=== PATIENT | female | born 1995 | race African-American/Black ===

== ENCOUNTER 2017-08-22 17:08 | Emergency (ER) | payer MEDICAID ==
[~2017-08-22] VITALS: Ht 162.6 cm; Wt 73.9 kg
[2017-08-22 17:53] LABS: *URINE HCG, QUAL NEGATIVE (NEGATIVE)
[2017-08-22 17:54] LABS: *BILIRUBIN,URIN 1+ (NEGATIVE); *BLOOD, URINE NEGATIVE (NEGATIVE); *CLARITY,URINE CLEAR (CLEAR); *COLOR,URINE DARK YELLOW (YELLOW); *KETONES,URINE NEGATIVE (NEGATIVE); *PROTEIN,URINE 1+ (NEGATIVE); LEUKOCYTE ESTERASE ,URINE NEGATIVE (NEGATIVE); NITRITE, URINE NEGATIVE (NEGATIVE); PH,URINE 6.5 (5.0-8.0); UGLUCOSE NEGATIVE (NEGATIVE)
[2017-08-22 18:07] LABS: BACTERIA,URINE FEW /HPF (NONE SEEN); MUCUS,URINE MANY /LPF (0-FEW); RBC,URINE 0-3 /HPF (0-3); SQUAMOUS EPITHELIAL CELL,UR MODERATE /HPF (NONE SEEN); WBC,URINE 0-3 /HPF (0-3)
[2017-08-22 18:13] LABS: BASOPHILS % (AUTO) 0.6 % (0.0-2.0); EOSINOPHILS # (AUTO) 0.1 K/uL (0.0-0.7); EOSINOPHILS % (AUTO) 2.8 % (0.0-7.0); HEMATOCRIT 39.4 % (31.2-41.9); HEMOGLOBIN 13.2 g/dL (10.9-14.3); LYMPHOCYTES # (AUTO) 1.1 K/uL (20.0-40.0); LYMPHOCYTES % (AUTO) 22.3 % (20.5-51.5); MEAN CORPUSCULAR HEMOGLOBIN 29.1 uug (24.7-32.8); MEAN CORPUSCULAR HGB CONC 33 g/dL (32.3-35.6); MEAN CORPUSCULAR VOLUME 87.2 fL (75.5-95.3); MONOCYTES # (AUTO) 0.6 K/uL (2.0-10.0); MONOCYTES % (AUTO) 11.7 % (0.0-11.0); NEUTROPHILS # (AUTO) 3.1 K/uL (1.8-8.9); NEUTROPHILS % (AUTO) 62.6 % (38.5-71.5); PLATELET COUNT (AUTO) 216 K/uL (179-408); RED BLOOD CELL COUNT(AUTO) 4.51 MIL/uL (3.63-4.92); WHITE BLOOD COUNT (AUTO) 4.9 K/uL (3.8-11.8)
[2017-08-22 18:28] LABS: BILIRUBIN,DIRECT 0.1 mg/dL (0.0-0.2); BILIRUBIN,TOTAL 0.3 mg/dL (0.2-1.0); CREATININE 1.1 mg/dL (0.6-1.3); POTASSIUM 3.4 mmol/L (3.5-5.1)
--- NOTE | 2017-08-22 18:50 | NUR ---
mse completed, pt d/c'd home, aci given/pt ambulated w/o diff/took all belongings.
[2017-08-22 18:52] VITALS: BP 111/58
== END 2017-08-22 18:53 | disposition home or self-care (01) ==
LOC: ER 17:09
DX: R10.9 Unspecified abdominal pain (principal); Z90.89 Acquired absence of other organs
CPT/HCPCS: 36415; 83690; 84703; 85025; A4663

== ENCOUNTER 2021-01-23 11:00 | Emergency (ER) | payer MEDICAID ==
[~2021-01-23] VITALS: Ht 162.6 cm; Wt 73.9 kg
[2021-01-23] MEDS ORDERED: AMOX875T2 PO (12:47)
[2021-01-23] MEDS ORDERED: NEOM10DR11 LEFT EAR (12:47)
--- NOTE | 2021-01-23 12:53 | NUR ---
Patient discharged to home in stable condition. Written and verbal after care instructions given. Patient verbalizes understanding of instructions. Stressed follow up or return to ER for worsening s/s.
== END 2021-01-23 12:54 | disposition home or self-care (01) ==
LOC: ER 11:00
DX: H66.90 Otitis media, unspecified, unspecified ear (principal); Z20.822 Contact with and (suspected) exposure to COVID-19
CPT/HCPCS: 71045; 86403; 87070; A4663

== ENCOUNTER 2021-05-23 08:48 | Emergency (ER) | payer MEDICAID ==
[~2021-05-23] VITALS: Ht 162.6 cm; Wt 73.5 kg
[~2021-05-23 08:48] MED LIST: AMOX875T2 PO; NEOM10DR11 LEFT EAR
[2021-05-23 10:40] LABS: *URINE HCG, QUAL NEG (NEGATIVE)
--- NOTE | 2021-05-23 11:28 | NUR ---
PT WAS EVALUATED BY DR DOMINGUEZ. PT WAS D/C'd TO HOME BY DR DOMINGUEZ. D/C INSTRUCTIONS GIVEN TO THE PT BY DR DOMINGUEZ.
[2021-05-23 11:29] VITALS: BP 134/71
== END 2021-05-23 11:30 | disposition home or self-care (01) ==
LOC: ER 08:48
DX: J06.9 Acute upper respiratory infection, unspecified (principal); Z20.822 Contact with and (suspected) exposure to COVID-19; N93.9 Abnormal uterine and vaginal bleeding, unspecified
CPT/HCPCS: 84703; A4663

== ENCOUNTER 2021-10-13 10:01 | Emergency (ER) | payer MEDICAID ==
[~2021-10-13] VITALS: Ht 162.6 cm; Wt 72.6 kg
--- NOTE | 2021-10-13 10:11 | NUR ---
Patient ambulatory,alert and orientedx4 complaints of pain on hard palate and headache, swelling noted on the affected area, per patient started 2 weeks ago. Denies nausea/vomiting, fever, chills. Vitals stable.
--- NOTE | 2021-10-13 10:18 | NUR ---
MD at bedside, medical screening exam in progress.
[2021-10-13] MEDS ORDERED: AMOXicillin 250 MG CAPSULE ONE (10:26)
[2021-10-13] MEDS ORDERED: AMOX875T2 PO (10:26)
[2021-10-13] MEDS ORDERED: HYDROCODONE/APAP 5-325MG TABLET ONE (10:26)
[2021-10-13] MEDS ORDERED: HYDR-4209 PO (10:26)
[2021-10-13] MEDS: HYDROCODONE/APAP 5-325MG TABLET PO ONE (10:28)
[2021-10-13] MEDS: AMOXicillin 250 MG CAPSULE PO ONE (10:28)
[2021-10-13 10:33] VITALS: BP 128/85
[2021-10-14] MEDS ORDERED: OXYC-133 PO ×2 (22:11)
[2021-10-14] MEDS ORDERED: AMOX-430 PO (22:11)
== END 2021-10-13 10:34 | disposition home or self-care (01) ==
LOC: ER 10:02
DX: K04.7 Periapical abscess without sinus (principal); Z90.89 Acquired absence of other organs; Z79.2 Long term (current) use of antibiotics; Z79.899 Other long term (current) drug therapy
CPT/HCPCS: A4663

== ENCOUNTER 2021-10-14 20:26 | Emergency (ER) | payer MEDICAID ==
[~2021-10-14] VITALS: Ht 162.6 cm; Wt 72.6 kg
[~2021-10-14 20:26] MED LIST changes: +HYDR-4209 PO
--- NOTE | 2021-10-14 20:35 | NUR ---
DR. DONIS AT BEDSIDE, MSE IN PROGRESS.
[2021-10-14] MEDS ORDERED: MORPHINE SULFATE 4 MG/1 ML DISP.SYRIN IV ONE (20:45)
[2021-10-14] MEDS ORDERED: CEFTRIAXONE 1 G in IV DEXTROSE 5% 50 ML IV ONE (20:45)
[2021-10-14] MEDS ORDERED: ONDANSETRON 4 MG/2 ML VIAL IV ONE (20:45)
[2021-10-14] MEDS ORDERED: ONDANSETRON 4 MG/2 ML VIAL ONE (20:49)
[2021-10-14] MEDS ORDERED: CEFTRIAXONE /D5W 50ML IVPB **ER PYXIS IV ONE (20:49)
[2021-10-14] MEDS ORDERED: MORPHINE SULFATE 4 MG/1 ML DISP.SYRIN ONE (20:50)
[2021-10-14 20:54] LABS: HEMATOCRIT 32.8 % (31.2-41.9); MEAN CORPUSCULAR HEMOGLOBIN 29.2 uug (24.7-32.8); PLATELET COUNT (AUTO) 198 K/uL (179-408)
[2021-10-14 20:59] LABS: CREATININE 0.7 mg/dL (0.6-1.3); POTASSIUM 3.5 mmol/L (3.5-5.1)
[2021-10-14] MEDS ORDERED: IOHEXOL 300MG/ML 100 ML INFUS..BTL ONE (21:17)
[2021-10-14] MEDS ORDERED: IV NORMAL SALINE 250 ML IV ONE (21:17)
[2021-10-14] MEDS ORDERED: SWABABLE VALVE TRANSFER SET EA MC ONE (21:17)
--- NOTE | 2021-10-14 21:35 | NUR ---
PT TAKEN DOWN FOR CT.
[2021-10-14] MEDS ORDERED: HYDROMORPHONE 1 MG/1 ML DISP.SYRIN IV ONE (22:00)
[2021-10-14] MEDS ORDERED: HYDROMORPHONE 1 MG/1 ML DISP.SYRIN ONE (22:01)
--- NOTE | 2021-10-14 22:02 | NUR ---
PT RETURNED FORM CT.
[2021-10-14] MEDS ORDERED: AMOX-430 PO (22:11)
[2021-10-14] MEDS ORDERED: OXYC-133 PO ×2 (22:11)
--- NOTE | 2021-10-14 22:23 | NUR ---
Patient discharged to home in stable condition. Written and verbal after care instructions given. Patient verbalizes understanding of instructions. Stressed follow up or return to ER for worsening s/s. Steady gait. No changes in LOC. Picked up by family.
[2021-10-14 22:26] VITALS: BP 116/62
== END 2021-10-14 22:26 | disposition home or self-care (01) ==
LOC: ER 20:27
DX: J32.0 Chronic maxillary sinusitis (principal)
CPT/HCPCS: 36415; 70487; 80048; 85025; 96365; 96375; 99284; J0696; J1170; J2270; J2405; Q9967; A4663

== ENCOUNTER 2021-11-28 13:25 | Emergency (ER) | payer SELFPAY ==
[~2021-11-28] VITALS: Ht 162.6 cm; Wt 72.6 kg
[~2021-11-28 13:25] MED LIST changes: +AMOX-430 PO; +OXYC-133 PO
--- NOTE | 2021-11-28 13:30 | NUR ---
Pt taken to CT transported to xr by [facility] via gurney. VSS<
[2021-11-28] MEDS ORDERED: SULF1TAB48 PO (13:44)
[2021-11-28] MEDS ORDERED: DIPH25TA62 PO (13:44)
--- NOTE | 2021-11-28 13:48 | NUR ---
DR DOMINGUEZ AT BEDSIDE FOR EVALUATION.
--- NOTE | 2021-11-28 13:55 | NUR ---
Pt given dc instructions by myself and the EDMD and pt confirmed understanding of aftercare. pt given med infor and told to take meds as directed and to complete the course of treatment, pt acknowledged and said that she understood. Pt complaining of mild to mod pain at would site , 650mg APAP given to pt, no reactions detected. VSS, NAD, PE WNL. No s/sx of distress present.
[2021-11-28] MEDS ORDERED: ACETAMINOPHEN 325 MG TABLET ONE (13:56)
[2021-11-28] MEDS ORDERED: ACETAMINOPHEN 650 MG/20.3 ML LIQUID UDC PO ONE (14:00)
--- NOTE | 2021-11-28 14:06 | NUR ---
PT MEDICATED FOR PAIN PER MD ORDER. DISCHARGE INSTRUCTIONS GIVEN BY .
[2021-11-28 14:07] VITALS: BP 120/67
== END 2021-11-28 14:07 | disposition home or self-care (01) ==
LOC: ER 13:25
DX: S80.862A Insect bite (nonvenomous), left lower leg, initial encounter (principal); L08.9 Local infection of the skin and subcutaneous tissue, unspecified; B95.8 Unspecified staphylococcus as the cause of diseases classified elsewhere; W57.XXXA Bitten or stung by nonvenomous insect and other nonvenomous arthropods, initial encounter; Y92.89 Other specified places as the place of occurrence of the external cause
CPT/HCPCS: A4663

== ENCOUNTER 2021-12-16 08:44 | Emergency (ER) | payer SELFPAY ==
[~2021-12-16] VITALS: Ht 162.6 cm; Wt 68.0 kg
[~2021-12-16 08:44] MED LIST changes: +DIPH25TA62 PO; +SULF1TAB48 PO
[2021-12-16] MEDS ORDERED: ACETAMINOPHEN 325 MG TABLET PO ONE (09:30)
[2021-12-16] MEDS ORDERED: IBUPROFEN 400 MG TABLET PO ONE (09:30)
[2021-12-16] MEDS ORDERED: IBUPROFEN 400 MG TABLET ONE (09:35)
[2021-12-16] MEDS ORDERED: ACETAMINOPHEN 325 MG TABLET ONE (09:36)
[2021-12-16] MEDS ORDERED: AMOX-430 PO (09:38)
--- NOTE | 2021-12-16 09:40 | NUR ---
PT SEEN AND EVALUATED BY DR RUSSO. MEDICATED FOR PAIN PER MD ORDER.
--- NOTE | 2021-12-16 09:42 | NUR ---
DC, RX AND FOLLOW UP INSTRUCTIONS GIVEN AND EXPLAINED TO PATIENT WHO STATES SHE UNDERSTANDS ALL INSTRUCTIONS
[2021-12-16] MEDS ORDERED: OXYC-128 PO (09:51)
[2021-12-17] MEDS ORDERED: AMOX-430 PO (05:37)
== END 2021-12-16 09:44 | disposition home or self-care (01) ==
LOC: ER 08:45
DX: K04.7 Periapical abscess without sinus (principal)
CPT/HCPCS: A4663

== ENCOUNTER 2021-12-17 03:53 | Emergency (ER) | payer SELFPAY ==
[~2021-12-17] VITALS: Ht 162.6 cm; Wt 70.3 kg
[~2021-12-17 03:53] MED LIST changes: +OXYC-128 PO
[2021-12-17] MEDS ORDERED: OXYCODONE/APAP 5-325 MG TABLET PO ONE (05:00)
[2021-12-17] MEDS ORDERED: OXYCODONE/APAP 5-325 MG TABLET ONE (05:04)
--- NOTE | 2021-12-17 05:21 | NUR ---
uNABLE TO CHECK PUPIL BECAUSEE PATIENT SAID HER EYES HURT. WILL ATTEMP WHEN PAIN RELIEF IS REACHED
[2021-12-17] MEDS ORDERED: AMOX-430 PO (05:37)
--- NOTE | 2021-12-17 05:45 | NUR ---
pt states feeling better. d/c'd home with prescriptionas per MD.
[2021-12-17 05:47] LABS: *URINE HCG, QUAL NEGATIVE (NEGATIVE)
[2021-12-17 05:53] VITALS: BP 99/46
== END 2021-12-17 05:54 | disposition home or self-care (01) ==
LOC: ER 04:25
DX: R51.9 Headache, unspecified (principal); K08.89 Other specified disorders of teeth and supporting structures
CPT/HCPCS: 84703; A4663

== ENCOUNTER 2022-05-25 11:39 | Emergency (ER) | payer OTHER ==
[~2022-05-25] VITALS: Ht 162.6 cm; Wt 83.9 kg
[2022-05-25 12:17] LABS: HEMATOCRIT 40.1 % (31.2-41.9); MEAN CORPUSCULAR VOLUME 88.2 fL (75.5-95.3); PLATELET COUNT (AUTO) 206 K/uL (179-408)
[2022-05-25 12:53] LABS: POTASSIUM 3.7 mmol/L (3.5-5.1)
[2022-05-25 12:59] LABS: BILIRUBIN,TOTAL 0.2 mg/dL (0.2-1.0); TOTAL PROTEIN, SERUM 7.4 g/dL (6.4-8.2)
[2022-05-25 13:54] LABS: *BILIRUBIN,URIN 1+ (NEGATIVE); *BLOOD, URINE 3+ (NEGATIVE); *CLARITY,URINE SLIGHTLY CLOUDY (CLEAR); *COLOR,URINE DARK YELLOW (YELLOW); *KETONES,URINE NEGATIVE (NEGATIVE); *URINE HCG, QUAL NEG (NEGATIVE); *UROBILINOGEN,URINE 0.2 E.U./dl (NORMAL); LEUKOCYTE ESTERASE ,URINE TRACE (NEGATIVE); NITRITE, URINE NEGATIVE (NEGATIVE); UGLUCOSE NEGATIVE (NEGATIVE)
[2022-05-25] MEDS ORDERED: ESTR0.623 PO (14:27)
--- NOTE | 2022-05-25 16:00 | NUR ---
Blane ambrosio. Went to room 2B to give her ACI but she was not in the room.
[2022-05-25 17:39] LABS: BACTERIA,URINE RARE /HPF (NONE SEEN); RBC,URINE 50-80 /HPF (0-3); SQUAMOUS EPITHELIAL CELL,UR FEW /HPF (NONE SEEN); URINE AMORPHOUS URATE MODERATE /HPF
== END 2022-05-25 16:25 | disposition left against medical advice (07) ==
LOC: ER 11:39
DX: N93.9 Abnormal uterine and vaginal bleeding, unspecified (principal)
CPT/HCPCS: 36415; 76856; 84703; 85025; A4663

== ENCOUNTER 2022-09-12 19:37 | Emergency (ER) | payer OTHER ==
[~2022-09-12] VITALS: Ht 170.2 cm; Wt 79.4 kg
[~2022-09-12 19:37] MED LIST changes: +ESTR0.623 PO
--- NOTE | 2022-09-12 20:10 | NUR ---
After being triaged, patient was placed back in the waiting room due to no beds available in the ER at this time.
--- NOTE | 2022-09-12 21:19 | NUR ---
Patient placed in room 4a at this time.
[2022-09-12 21:21] LABS: *BILIRUBIN,URIN NEGATIVE (NEGATIVE); *BLOOD, URINE NEGATIVE (NEGATIVE); *CLARITY,URINE CLEAR (CLEAR); *COLOR,URINE YELLOW (YELLOW); *KETONES,URINE NEGATIVE (NEGATIVE); *URINE HCG, QUAL NEG (NEGATIVE); *UROBILINOGEN,URINE 0.2 E.U./dl (NORMAL); LEUKOCYTE ESTERASE ,URINE NEGATIVE (NEGATIVE); NITRITE, URINE NEGATIVE (NEGATIVE); UGLUCOSE NEGATIVE (NEGATIVE)
--- NOTE | 2022-09-12 22:00 | NUR ---
X-ray tech in room taking X-rays of patient.
[2022-09-12 22:13] LABS: HEMATOCRIT 37.5 % (31.2-41.9); MEAN CORPUSCULAR HEMOGLOBIN 29.4 uug (24.7-32.8); MEAN CORPUSCULAR VOLUME 87.2 fL (75.5-95.3); PLATELET COUNT (AUTO) 206 K/uL (179-408)
[2022-09-12 22:34] LABS: ALANINE AMINOTRANSFERASE 23 U/L (14-59); ALKALINE PHOSPHATASE 113 U/L (50-136); ASPARTATE AMINOTRANSFERASE 15 U/L (15-37); BILIRUBIN,DIRECT < 0.1 mg/dL (0.0-0.2); BILIRUBIN,TOTAL 0.1 mg/dL (0.2-1.0); CARBON DIOXIDE 30 mmol/L (21-32); CHLORIDE 104 mmol/L (98-107); GLUCOSE 87 mg/dL (74-106); POTASSIUM 3.8 mmol/L (3.5-5.1); TOTAL PROTEIN, SERUM 6.9 g/dL (6.4-8.2); UREA NITROGEN, BLOOD 5 mg/dL (7-18)
[2022-09-12] MEDS ORDERED: MAGNESIUM HYDROXIDE 30 ML LIQUID UDC ONE (23:05)
[2022-09-12 23:11] VITALS: BP 128/57
[2022-09-12] MEDS ORDERED: MAGNESIUM HYDROXIDE 30 ML LIQUID UDC PO ONE (23:15)
== END 2022-09-12 23:12 | disposition home or self-care (01) ==
LOC: ER 19:39
DX: R10.31 Right lower quadrant pain (principal); K59.00 Constipation, unspecified; Z90.89 Acquired absence of other organs; Z79.2 Long term (current) use of antibiotics; Z79.899 Other long term (current) drug therapy
CPT/HCPCS: 36415; 74018; 84703; 85025; A4663

== ENCOUNTER 2023-02-01 21:41 | Emergency (ER) | payer OTHER ==
[~2023-02-01] VITALS: Ht 162.6 cm; Wt 65.8 kg
[2023-02-01 22:19] LABS: BASOPHILS # (AUTO) 0.1 K/UL (0.0-0.2); EOSINOPHILS # (AUTO) 0.1 K/uL (0.0-0.7); EOSINOPHILS % (AUTO) 2.3 % (0.0-7.0); HEMATOCRIT 35.6 % (31.2-41.9); LYMPHOCYTES # (AUTO) 1.3 K/uL (0.8-4.8); LYMPHOCYTES % (AUTO) 24.3 % (20.5-51.5); MEAN CORPUSCULAR HEMOGLOBIN 28.6 uug (24.7-32.8); MEAN CORPUSCULAR HGB CONC 34 g/dL (32.3-35.6); MEAN CORPUSCULAR VOLUME 84.9 fL (75.5-95.3); MONOCYTES # (AUTO) 0.4 K/uL (0.1-1.30); MONOCYTES % (AUTO) 7.5 % (0.0-11.0); NEUTROPHILS # (AUTO) 3.6 K/uL (1.8-8.9); NEUTROPHILS % (AUTO) 64.9 % (38.5-71.5); PLATELET COUNT (AUTO) 219 K/uL (179-408); RED BLOOD CELL COUNT(AUTO) 4.19 MIL/uL (3.63-4.92); RED CELL DISTRIBUTION WIDTH 14.1 % (12.3-17.7); WHITE BLOOD COUNT (AUTO) 5.5 K/uL (3.8-11.8)
[2023-02-01 22:24] LABS: *URINE HCG, QUAL POSITIVE (NEGATIVE)
[2023-02-01 22:25] LABS: DIFFERENTIAL COMMENT 1
[2023-02-01 22:33] LABS: *BILIRUBIN,URIN NEGATIVE (NEGATIVE); *BLOOD, URINE 3+ (NEGATIVE); *CLARITY,URINE TURBID (CLEAR); *COLOR,URINE RED (YELLOW); *KETONES,URINE NEGATIVE (NEGATIVE); *UROBILINOGEN,URINE 0.2 E.U./dl (NORMAL); LEUKOCYTE ESTERASE ,URINE NEGATIVE (NEGATIVE); NITRITE, URINE NEGATIVE (NEGATIVE); PH,URINE 6.5 (5.0-8.0); UGLUCOSE NEGATIVE (NEGATIVE)
[2023-02-01 22:50] LABS: *PROTEIN,URINE 3+ (NEGATIVE)
[2023-02-01 22:56] LABS: RBC,URINE TNTC /HPF (0-3)
[2023-02-01 22:58] LABS: SQUAMOUS EPITHELIAL CELL,UR MODERATE /HPF (NONE SEEN); WBC,URINE 0-3 /HPF (0-3)
[2023-02-01 22:59] LABS: BACTERIA,URINE FEW /HPF (NONE SEEN)
[2023-02-01 23:45] VITALS: BP 115/72; TEMP 98.4; O2SAT 99
== END 2023-02-01 23:45 | disposition home or self-care (01) ==
LOC: ER 21:41
DX: O03.9 Complete or unspecified spontaneous abortion without complication (principal); R10.2 Pelvic and perineal pain; Z90.89 Acquired absence of other organs; Z79.2 Long term (current) use of antibiotics; Z79.899 Other long term (current) drug therapy; Z3A.08 8 weeks gestation of pregnancy
CPT/HCPCS: 36415; 76815; 84703; 85025; 86850; 86900; 86901; A4663

== ENCOUNTER 2024-02-18 15:34 | Emergency (ER) | payer OTHER ==
[~2024-02-18] VITALS: Ht 165.1 cm; Wt 96.2 kg
[2024-02-18] MEDS: KETOROLAC TROMETHAMINE 60 MG INJ IM ONE (16:00)
[2024-02-18 16:07] LABS: BASOPHILS % (AUTO) 0.9 % (0.0-2.0); EOSINOPHILS # (AUTO) 0.3 K/uL (0.0-0.7); EOSINOPHILS % (AUTO) 5.9 % (0.0-7.0); HEMATOCRIT 38.5 % (31.2-41.9); HEMOGLOBIN 12.4 g/dL (10.9-14.3); LYMPHOCYTES # (AUTO) 1.8 K/uL (0.8-4.8); MEAN CORPUSCULAR HEMOGLOBIN 27.3 uug (24.7-32.8); MEAN CORPUSCULAR HGB CONC 32 g/dL (32.3-35.6); MEAN CORPUSCULAR VOLUME 84.7 fL (75.5-95.3); MONOCYTES # (AUTO) 0.5 K/uL (0.1-1.30); MONOCYTES % (AUTO) 9.5 % (0.0-11.0); NEUTROPHILS # (AUTO) 2.6 K/uL (1.8-8.9); NEUTROPHILS % (AUTO) 49.7 % (38.5-71.5); PLATELET COUNT (AUTO) 201 K/uL (179-408); RED BLOOD CELL COUNT(AUTO) 4.55 MIL/uL (3.63-4.92); WHITE BLOOD COUNT (AUTO) 5.2 K/uL (3.8-11.8)
[2024-02-18 16:11] LABS: DIFFERENTIAL COMMENT 1
[2024-02-18] MEDS ORDERED: KETOROLAC TROMETHAMINE 60 MG INJ IM ONE (16:11)
[2024-02-18 16:15] LABS: CALCIUM 8.5 mg/dL (8.5-10.1); CREATININE 0.9 mg/dL (0.6-1.3)
[2024-02-18 16:18] LABS: URIC ACID 3.4 mg/dL (2.6-6.0)
[2024-02-18] MEDS: COLCHICINE 0.6 MG TABLET PO ONE (17:00)
[2024-02-18] MEDS ORDERED: diphenhydrAMINE 50 MG/1 ML VIAL ONE (17:26)
[2024-02-18] MEDS ORDERED: OLANZAPINE 10 MG VIAL IM ONE (17:26)
[2024-02-18] MEDS ORDERED: COLCHICINE 0.6 MG TABLET ONE (18:09)
[2024-02-18] MEDS ORDERED: INDO-13 PO (18:36)
[2024-02-18] MEDS ORDERED: COLC0.6T67 PO (18:36)
[2024-02-18 18:54] VITALS: BP 146/98; O2SAT 99
== END 2024-02-18 18:56 | disposition home or self-care (01) ==
LOC: ER 15:35
DX: M10.9 Gout, unspecified (principal); F12.90 Cannabis use, unspecified, uncomplicated; Z90.89 Acquired absence of other organs; Z88.7 Allergy status to serum and vaccine
CPT/HCPCS: 99284; 80048; 84550; 85025; 36415; 73620; 96372; J1885; A4606; A4663; J1200; J2358

== ENCOUNTER 2024-04-17 15:44 | Emergency (ER) | payer OTHER ==
[~2024-04-17] VITALS: Ht 162.6 cm; Wt 93.4 kg
[~2024-04-17 15:44] MED LIST changes: +COLC0.6T67 PO; +INDO-13 PO
[2024-04-17 15:57] VITALS: O2SAT 99
[2024-04-17] MEDS ORDERED: IBUP-1955 PO (16:43)
== END 2024-04-17 16:51 | disposition home or self-care (01) ==
LOC: ER 15:44
DX: G89.29 Other chronic pain (principal); M25.511 Pain in right shoulder; F12.90 Cannabis use, unspecified, uncomplicated; Z90.89 Acquired absence of other organs; Z79.899 Other long term (current) drug therapy; Z88.7 Allergy status to serum and vaccine
CPT/HCPCS: 73020; A4606; A4663

== ENCOUNTER 2024-07-16 09:52 | Emergency (ER) | payer OTHER ==
[~2024-07-16] VITALS: Ht 162.6 cm; Wt 90.7 kg
[~2024-07-16 09:52] MED LIST changes: +IBUP-1955 PO
[2024-07-16] MEDS ORDERED: ONDANSETRON 4 MG/2 ML VIAL ONE (12:35)
[2024-07-16] MEDS ORDERED: MORPHINE SULFATE 4 MG/1 ML DISP.SYRIN ONE (12:35)
[2024-07-16] MEDS: ONDANSETRON 4 MG/2 ML VIAL IV ONE (12:45)
[2024-07-16] MEDS: MORPHINE SULFATE 4 MG/1 ML DISP.SYRIN IV ONE (12:47)
[2024-07-16 13:16] LABS: *BILIRUBIN,URIN 1+ (NEGATIVE); *BLOOD, URINE NEGATIVE (NEGATIVE); *CLARITY,URINE CLEAR (CLEAR); *COLOR,URINE YELLOW (YELLOW); *KETONES,URINE 2+ (NEGATIVE); *PROTEIN,URINE 1+ (NEGATIVE); LEUKOCYTE ESTERASE ,URINE TRACE (NEGATIVE); NITRITE, URINE NEGATIVE (NEGATIVE); PH,URINE 6.5 (5.0-8.0); UGLUCOSE NEGATIVE (NEGATIVE)
[2024-07-16 13:27] LABS: BACTERIA,URINE FEW /HPF (NONE SEEN); SQUAMOUS EPITHELIAL CELL,UR FEW /HPF (NONE SEEN); URINE AMORPHOUS URATE FEW /HPF
[2024-07-16 14:01] LABS: BASOPHILS % (AUTO) 0.9 % (0.0-2.0); EOSINOPHILS # (AUTO) 0.1 K/uL (0.0-0.7); EOSINOPHILS % (AUTO) 2.5 % (0.0-7.0); HEMATOCRIT 37.5 % (31.2-41.9); HEMOGLOBIN 12.7 g/dL (10.9-14.3); LYMPHOCYTES # (AUTO) 1.5 K/uL (0.8-4.8); LYMPHOCYTES % (AUTO) 32.6 % (20.5-51.5); MEAN CORPUSCULAR HEMOGLOBIN 28.6 uug (24.7-32.8); MEAN CORPUSCULAR HGB CONC 34 g/dL (32.3-35.6); MEAN CORPUSCULAR VOLUME 84.6 fL (75.5-95.3); MONOCYTES # (AUTO) 0.3 K/uL (0.1-1.30); MONOCYTES % (AUTO) 7.2 % (0.0-11.0); NEUTROPHILS # (AUTO) 2.6 K/uL (1.8-8.9); NEUTROPHILS % (AUTO) 56.8 % (38.5-71.5); PLATELET COUNT (AUTO) 213 K/uL (179-408); RED BLOOD CELL COUNT(AUTO) 4.44 MIL/uL (3.63-4.92); RED CELL DISTRIBUTION WIDTH 13.9 % (12.3-17.7); WHITE BLOOD COUNT (AUTO) 4.6 K/uL (3.8-11.8)
[2024-07-16 14:05] LABS: DIFFERENTIAL COMMENT 1
[2024-07-16 14:09] LABS: CARBON DIOXIDE 30 mmol/L (21-32); CHLORIDE 101 mmol/L (98-107); CREATININE 0.8 mg/dL (0.6-1.3); GLUCOSE 94 mg/dL (74-106); POTASSIUM 3.3 mmol/L (3.5-5.1); SODIUM SERUM 142 mmol/L (136-145); UREA NITROGEN, BLOOD 4 mg/dL (7-18)
[2024-07-16 14:15] LABS: ALANINE AMINOTRANSFERASE 23 U/L (14-59); ALBUMIN 3.3 g/dL (3.4-5.0); ALKALINE PHOSPHATASE 112 U/L (50-136); ASPARTATE AMINOTRANSFERASE 13 U/L (15-37); BILIRUBIN,DIRECT 0.1 mg/dL (0.0-0.2); BILIRUBIN,TOTAL 0.4 mg/dL (0.2-1.0); LIPASE 18 U/L (16-77); TOTAL PROTEIN, SERUM 7.5 g/dL (6.4-8.2)
[2024-07-16 14:24] LABS: PREGNANCY TEST SERUM QUAN < 1 miul/L (0-6)
[2024-07-16] MEDS ORDERED: CEFTRIAXONE /D5W 50ML IVPB **ER PYXIS IV ONE (15:53)
[2024-07-16] MEDS ORDERED: METRONIDAZOLE 500 MG/NS 100ML 100 ML IV ONE (15:54)
[2024-07-16] MEDS: CEFTRIAXONE 1 G in IV DEXTROSE 5% 50 ML IV ONE (15:59)
[2024-07-16] MEDS: METRONIDAZOLE 500 MG/NS 100 ML PIGGYBACK IV ONE (16:26)
[2024-07-16 17:20] VITALS: O2SAT 99
[2024-07-16] MEDS ORDERED: CEFD300C3 PO (18:31)
[2024-07-16] MEDS ORDERED: DOXY100C5 PO (18:31)
[2024-07-16] MEDS ORDERED: FLUCONAZOLE 100 MG TABLET ONE (18:41)
[2024-07-16] MEDS: FLUCONAZOLE 100 MG TABLET PO ONE (18:42)
== END 2024-07-16 18:56 | disposition home or self-care (01) ==
LOC: ER 09:52
DX: N75.1 Abscess of Bartholin's gland (principal); L03.315 Cellulitis of perineum; N76.4 Abscess of vulva; R10.2 Pelvic and perineal pain; F12.90 Cannabis use, unspecified, uncomplicated; F17.200 Nicotine dependence, unspecified, uncomplicated; Z90.89 Acquired absence of other organs; Z60.2 Problems related to living alone; Z88.7 Allergy status to serum and vaccine
CPT/HCPCS: 99285; 74176; 96365; 76856; 96375; 96367; 80076; 80048; 81001; 83690; 85025; 84702; 36415; J0696; J3490; J2405; J2270; A4606; A4663

== ENCOUNTER 2025-01-21 13:23 | Emergency (ER) | payer MEDICAID, OTHER ==
[~2025-01-21] VITALS: Ht 165.1 cm; Wt 86.2 kg
[~2025-01-21 13:23] MED LIST changes: +CEFD300C3 PO; +DOXY100C5 PO
[2025-01-21] MEDS ORDERED: ONDANSETRON 4 MG/2 ML VIAL ONE ×2 (16:57→19:03)
[2025-01-21] MEDS ORDERED: MORPHINE SULFATE 4 MG/1 ML DISP.SYRIN ONE ×2 (16:57→19:03)
[2025-01-21] MEDS: ONDANSETRON 4 MG/2 ML VIAL IV ONE ×2 (17:08→19:06)
[2025-01-21] MEDS: MORPHINE SULFATE 2 MG/1 ML DISP.SYRIN IV ONE (17:08)
[2025-01-21 17:15] LABS: PLATELET COUNT (AUTO) 178 K/uL (179-408); RED BLOOD CELL COUNT(AUTO) 4.25 MIL/uL (3.63-4.92); RED CELL DISTRIBUTION WIDTH 14.3 % (12.3-17.7); WHITE BLOOD COUNT (AUTO) 4.7 K/uL (3.8-11.8)
[2025-01-21] MEDS ORDERED: CLINDAMYCIN 600 MG PIGGYBACK**ER OMNI IV ONE (17:17)
[2025-01-21 17:23] LABS: CREATININE 0.7 mg/dL (0.6-1.3); SODIUM SERUM 140 mmol/L (136-145); UREA NITROGEN, BLOOD 9 mg/dL (7-18)
[2025-01-21] MEDS: CLINDAMYCIN PHOSPHATE IV 600 MG in IV DEXTROSE 5% 100 ML IV ONE (17:24)
[2025-01-21 17:28] LABS: ASPARTATE AMINOTRANSFERASE 8 U/L (15-37); TOTAL PROTEIN, SERUM 6.6 g/dL (6.4-8.2)
[2025-01-21 17:41] VITALS: BP 130/75
[2025-01-21] MEDS ORDERED: HYDR-3972 PO (19:01)
[2025-01-21] MEDS ORDERED: CLIN300C3 PO (19:03)
[2025-01-21] MEDS: MORPHINE SULFATE 4 MG/1 ML DISP.SYRIN IV ONE (19:06)
[2025-01-21 19:37] VITALS: BP 130/75; TEMP 97.8; O2SAT 98
== END 2025-01-21 19:37 | disposition home or self-care (01) ==
LOC: ER 13:23
DX: L08.9 Local infection of the skin and subcutaneous tissue, unspecified (principal); B95.8 Unspecified staphylococcus as the cause of diseases classified elsewhere; F12.90 Cannabis use, unspecified, uncomplicated; F17.200 Nicotine dependence, unspecified, uncomplicated; G89.29 Other chronic pain; Z79.818 Long term (current) use of other agents affecting estrogen receptors and estrogen levels; Z88.7 Allergy status to serum and vaccine; Z90.89 Acquired absence of other organs; Z79.899 Other long term (current) drug therapy; Z60.2 Problems related to living alone
CPT/HCPCS: 99284; 96365; 96375; 71045; 80076; 80048; 85025; 84145; 85730; 87040 ×2; 36415; 73020; 96376; 83605; J3490 ×2; J2405 ×2; J2270 ×2; A4606; A4663

== ENCOUNTER 2025-05-01 21:37 | Inpatient (IN) | payer MEDICAID ==
[~2025-05-01] VITALS: Ht 162.6 cm; Wt 70.0 kg
[~2025-05-01 21:37] MED LIST changes: +AMOX-319 PO; -AMOX-430 PO; +CLIN300C3 PO; +HYDR-3972 PO; -IBUP-1955 PO; +IBUP-2760 PO
[2025-05-01 22:18] LABS: PLATELET COUNT (AUTO) 254 K/uL (179-408); RED BLOOD CELL COUNT(AUTO) 5.40 MIL/uL (3.63-4.92); RED CELL DISTRIBUTION WIDTH 14.7 % (12.3-17.7); WHITE BLOOD COUNT (AUTO) 18.0 K/uL (3.8-11.8)
[2025-05-01] MEDS: FAMOTIDINE. 20 MG/2 ML VIAL IV ONE (22:21)
[2025-05-01] MEDS: IV NORMAL SALINE 1000 ML BAG IV ONE (22:21)
[2025-05-01] MEDS: ONDANSETRON 4 MG/2 ML VIAL IV ONE (22:21)
[2025-05-01 22:28] LABS: CREATININE 1.4 mg/dL (0.6-1.3); SODIUM SERUM 136.0 mmol/L (136-145); UREA NITROGEN, BLOOD 14.0 mg/dL (7-18)
[2025-05-01 22:33] LABS: ASPARTATE AMINOTRANSFERASE 61.0 U/L (15-37); TOTAL PROTEIN, SERUM 9.7 g/dL (6.4-8.2)
[2025-05-01 23:03] LABS: LACTIC ACID 6.8 mmol/L (0.4-2.0)
[2025-05-01] MEDS ORDERED: CEFEPIME HCL 2 GM VIAL ONE (23:53)
[2025-05-01] MEDS: CEFEPIME (MAXEPIME) 2 G in IV DEXTROSE 5% 100 ML IV ONE (23:57)
[2025-05-01] MEDS: IV LACTATED RINGERS SOLUTION 1,000 ML BAG IV ONE (23:57)
[2025-05-02] VITALS (7 sets, daily range): BP systolic 126–148; BP diastolic 53–92; TEMP 98.8–100; O2SAT 93–99
[2025-05-02] MEDS: MORPHINE SULFATE 4 MG/1 ML DISP.SYRIN IV ONE (01:04)
[2025-05-02] MEDS: diphenhydrAMINE 50 MG/1 ML VIAL IV ONE (01:06)
[2025-05-02 01:43] LABS: *BILIRUBIN,URIN NEGATIVE (NEGATIVE); *CLARITY,URINE CLEAR (CLEAR); *COLOR,URINE YELLOW (YELLOW); *KETONES,URINE 3+ (NEGATIVE); *PROTEIN,URINE 2+ (NEGATIVE); *UROBILINOGEN,URINE 0.2 E.U./dl (NORMAL); LEUKOCYTE ESTERASE ,URINE NEGATIVE (NEGATIVE); NITRITE, URINE NEGATIVE (NEGATIVE); UGLUCOSE NEGATIVE (NEGATIVE)
[2025-05-02 01:44] LABS: *BLOOD, URINE TRACE (NEGATIVE)
[2025-05-02 01:45] LABS: *URINE HCG, QUAL NEGATIVE (NEGATIVE); SQUAMOUS EPITHELIAL CELL,UR FEW /HPF (NONE SEEN)
[2025-05-02] MEDS ORDERED: REMEDY ESSENTIAL ZINC PASTE 113 GM TP PRN (03:45)
[2025-05-02] MEDS: IV LACTATED RINGERS SOLUTION 1,000 ML IV SCH (04:23)
[2025-05-02] MEDS: MORPHINE SULFATE 2 MG/1 ML DISP.SYRIN IV PRN (04:27)
[2025-05-02 08:28] LABS: PLATELET COUNT (AUTO) 214 K/uL (179-408); RED BLOOD CELL COUNT(AUTO) 4.64 MIL/uL (3.63-4.92); RED CELL DISTRIBUTION WIDTH 14.6 % (12.3-17.7); WHITE BLOOD COUNT (AUTO) 16.2 K/uL (3.8-11.8)
[2025-05-02 08:46] LABS: CREATININE 0.9 mg/dL (0.6-1.3); SODIUM SERUM 137.0 mmol/L (136-145); UREA NITROGEN, BLOOD 10.0 mg/dL (7-18)
[2025-05-02] MEDS: FAMOTIDINE. 20 MG/2 ML VIAL IV SCH (10:38)
[2025-05-02] MEDS: ACETAMINOPHEN 325 MG TABLET PO PRN (10:53)
[2025-05-02] MEDS: MAGNESIUM OXIDE 400 MG TABLET PO ONE (12:40)
[2025-05-02] MEDS: IV LACTATED RINGERS SOLUTION 1,000 ML IV PRN (14:31)
[2025-05-02] MEDS ORDERED: KETOROLAC TROMETHAMINE 15 MG INJ IM PRN (15:00)
[2025-05-02 15:15] LABS: *AMPHETAMINE, URINE NEGATIVE (NEGATIVE); *BARBITURATE, URINE NEGATIVE (NEGATIVE); *BENZODIAZEPINE, URINE NEGATIVE (NEGATIVE); *CANNABINOID, URINE POSITIVE (NEGATIVE); *COCCAINE, URINE NEGATIVE (NEGATIVE); *OPIATE, URINE POSITIVE (NEGATIVE); *PHENCYCLIDINE SCREEN,URINE NEGATIVE (NEGATIVE); FENTANYL, URINE NEGATIVE (NEGATIVE)
[2025-05-02] MEDS: MORPHINE SULFATE 4 MG/1 ML DISP.SYRIN IV PRN (17:21)
[2025-05-02] MEDS: BENZOCAINE/MENTH/CETYLPYRD LOZENGE MM PRN (20:41)
[2025-05-03 04:00] VITALS: BP 125/78; TEMP 99.1; O2SAT 99
[2025-05-03 07:00] LABS: PLATELET COUNT (AUTO) 159 K/uL (179-408); RED BLOOD CELL COUNT(AUTO) 4.13 MIL/uL (3.63-4.92); RED CELL DISTRIBUTION WIDTH 14.1 % (12.3-17.7); WHITE BLOOD COUNT (AUTO) 7.4 K/uL (3.8-11.8)
[2025-05-03 07:01] LABS: CREATININE 0.8 mg/dL (0.6-1.3); SODIUM SERUM 137.0 mmol/L (136-145); UREA NITROGEN, BLOOD 4.0 mg/dL (7-18)
[2025-05-03] MEDS ORDERED: IOHEXOL 300MG/ML 100 ML INFUS..BTL ONE (09:46)
[2025-05-03] MEDS: NEUTRA PHOS PACKET PO ONE (10:56)
[2025-05-03] MEDS: ONDANSETRON 4 MG/2 ML VIAL IV PRN (13:48)
[2025-05-03 16:00] VITALS: BP 141/75; TEMP 97.6; O2SAT 98
[2025-05-03 19:00] VITALS: BP 153/76; TEMP 99.4; O2SAT 98
[2025-05-03] MEDS: FAMOTIDINE 20 MG TABLET PO SCH (21:16)
[2025-05-04 06:03] VITALS: BP 159/97; TEMP 98.9; O2SAT 97
[2025-05-04 06:30] LABS: PLATELET COUNT (AUTO) 143 K/uL (179-408); RED BLOOD CELL COUNT(AUTO) 4.05 MIL/uL (3.63-4.92); RED CELL DISTRIBUTION WIDTH 13.9 % (12.3-17.7); WHITE BLOOD COUNT (AUTO) 4.7 K/uL (3.8-11.8)
[2025-05-04 06:43] LABS: CREATININE 0.6 mg/dL (0.6-1.3); SODIUM SERUM 139 mmol/L (136-145); UREA NITROGEN, BLOOD 3 mg/dL (7-18)
[2025-05-04] MEDS: POTASSIUM CHLORIDE 20 MEQ TAB.PRT.SR PO ONE (11:17)
[2025-05-04] MEDS: MAGNESIUM OXIDE 400 MG TABLET PO ONE (11:17)
[2025-05-04 11:26] VITALS: BP 161/81; TEMP 99; O2SAT 98
[2025-05-04] MEDS: TRAMADOL HCL 50 MG TABLET PO PRN (14:31)
[2025-05-04] MEDS: LIDOCAINE VISCUS 2% 15 ML UDC MM SCH (14:38)
[2025-05-04 15:21] VITALS: BP 165/99; TEMP 98.7; O2SAT 100
[2025-05-04] MEDS: NEUTRA PHOS PACKET PO ONE (18:05)
[2025-05-04 19:00] VITALS: BP 140/84; TEMP 98.3; O2SAT 96
[2025-05-04] MEDS: AMLODIPINE 5 MG TABLET PO SCH (20:35)
[2025-05-05] MEDS ORDERED: LIDOCAINE VISCUS 2% 15 ML UDC ONE (02:32)
[2025-05-05 04:00] VITALS: BP 142/88; TEMP 98.2; O2SAT 96
[2025-05-05 06:39] LABS: CREATININE 0.6 mg/dL (0.6-1.3); SODIUM SERUM 136 mmol/L (136-145); UREA NITROGEN, BLOOD 4 mg/dL (7-18)
[2025-05-05 08:16] VITALS: BP 160/78
[2025-05-05] MEDS ORDERED: METH4TAB3 PO (09:08)
[2025-05-05] MEDS ORDERED: [UNRECOGNIZED DRUG - CODE] PO (09:08)
[2025-05-05] MEDS ORDERED: AMLO-212 PO (09:08)
[2025-05-05] MEDS ORDERED: CIPR-262 PO (09:08)
[2025-05-05] MEDS ORDERED: METR-147 PO (09:08)
== END 2025-05-05 10:05 | disposition home or self-care (01) | DRG 720 ==
LOC: ER 21:43 → MEDSURG3 05-02 03:36
PROVIDERS: ADMIT Nurse Practitioner Acute Care; ATTEND Nurse Practitioner Family
DX: A41.9 Sepsis, unspecified organism (principal); N17.0 Acute kidney failure with tubular necrosis; E87.20 Acidosis, unspecified; E83.39 Other disorders of phosphorus metabolism; R13.10 Dysphagia, unspecified; A49.9 Bacterial infection, unspecified; E66.9 Obesity, unspecified; K29.70 Gastritis, unspecified, without bleeding; K29.60 Other gastritis without bleeding; E86.0 Dehydration; D72.829 Elevated white blood cell count, unspecified; F17.210 Nicotine dependence, cigarettes, uncomplicated; Z68.29 Body mass index [BMI] 29.0-29.9, adult; R73.9 Hyperglycemia, unspecified; R79.89 Other specified abnormal findings of blood chemistry
CPT/HCPCS: 36415; 71045; 76700; 83605; 83690; 83735; 84100; 84703; 85025; 87040; A4606; A4663; A6213; C1758; G0378; J0692; J0696; J1200; J1308; J2270; J2405; J2919; J7040; J7070; J7120; Q9967